=== PATIENT | male | born 1970 | race Caucasian/White ===

== ENCOUNTER 2021-05-23 03:59 | Inpatient (IN) ==
[2021-05-24] MEDS: Pantoprazole 40 MG VIAL IVP SCH (09:30)
[2021-05-24] MEDS: Aspirin 81 MG TAB.CHEW PO SCH (09:30)
[2021-05-24] MEDS: MethylPREDNISolone 40 MG/ML VIAL IVP SCH ×2 (09:30→15:45)
[2021-05-24] MEDS: Insulin LISPRO 300 UNITS/3 ML VIAL SUBQ SCH ×3 (09:30→17:04)
[2021-05-24] MEDS ORDERED: Dextrose Gel 15 GM/37.5 ML TUBE PO PRN ×2 (14:55)
[2021-05-24] MEDS ORDERED: D5% in Water 1,000 ML IVC PRN (14:55)
[2021-05-24] MEDS ORDERED: *HR* Dextrose 50 % in Water (Syg) 50 ML SYRINGE IVP PRN (14:55)
[2021-05-24] MEDS ORDERED: *HR* Heparin 5,000 UNIT/ML VIAL IVP PRN ×2 (14:56)
[2021-05-24] MEDS ORDERED: Naloxone 0.4 MG/ML INJ IVP PRN (14:58)
[2021-05-24] MEDS ORDERED: Ondansetron 4 MG/2 ML VIAL IVP PRN (14:58)
[2021-05-24] MEDS ORDERED: Calcium Gluconate 1gm/50mL 1 GM/50 ML BAG IVPB PRN (14:58)
[2021-05-24] MEDS: Piperacillin/Tazobactam 3.375 GM in 0.9 % Sodium Chloride Mini Bag 100 ML IVPB SCH (15:42)
[2021-05-24] MEDS: Heparin 25,000UNIT/250ML 1/2NS 25,000 UNIT/250 ML IV.SOLN IVC SCH ×2 (16:27→19:52)
[2021-05-24] MEDS: carvediloL 6.25 MG TABLET PO SCH (17:05)
[2021-05-24] MEDS ORDERED: Vancomycin 1,750 MG/517.5 ML IV.SOLN IVPB SCH (19:00)
[2021-05-24] MEDS ORDERED: Insulin DETEMIR 100 UNIT/ML X5UNITS SUBQ SCH (21:00)
[2021-05-24] MEDS: Vancomycin 2,000 MG/520 ML IV.SOLN IVPB SCH (22:48)
[2021-05-25] MEDS: MethylPREDNISolone 40 MG/ML VIAL IVP SCH ×2 (01:24→08:57)
[2021-05-25] MEDS: Piperacillin/Tazobactam 3.375 GM in 0.9 % Sodium Chloride Mini Bag 100 ML IVPB SCH ×2 (01:24→08:55)
[2021-05-25 06:55] VITALS: TEMP 97.8; O2SAT 95
[2021-05-25] MEDS: Insulin LISPRO 300 UNITS/3 ML VIAL SUBQ SCH ×2 (08:52→11:43)
[2021-05-25] MEDS: Pantoprazole 40 MG VIAL IVP SCH (08:58)
[2021-05-25] MEDS: Aspirin 81 MG TAB.CHEW PO SCH (08:59)
[2021-05-25] MEDS: carvediloL 6.25 MG TABLET PO SCH (08:59)
[2021-05-25] MEDS: Vancomycin 2,000 MG/520 ML IV.SOLN IVPB SCH (09:13)
[2021-05-25 10:18] VITALS: BP 101/62; PULSE 79
[2021-05-25] MEDS: Heparin 25,000UNIT/250ML 1/2NS 25,000 UNIT/250 ML IV.SOLN IVC SCH (13:36)
== END 2021-05-25 15:17 | disposition home or self-care (01) | DRG 133 ==
LOC: 2NNU 05-24 11:06 → 3ANU 05-24 19:46
PROVIDERS: ADMIT Internal Medicine; ATTEND Internal Medicine